=== PATIENT | male | born 1980 | race Caucasian/White ===

== ENCOUNTER 2019-10-08 16:45 | Emergency (ER) | payer OTHER, MEDICAID ==
[~2019-10-08] VITALS: Ht 162.6 cm; Wt 68.9 kg
[2019-10-08 16:50] VITALS: BP 142/85; Ht 162.6 cm; Wt 68.9 kg
== END 2019-10-08 17:52 | disposition home or self-care (01) ==
LOC: ED 16:45
DX: L03.211 Cellulitis of face (principal); K02.9 Dental caries, unspecified